=== PATIENT | female | born 1935 | race Caucasian/White ===

== ENCOUNTER → 2016-05-11 | Outpatient (REF) | payer MEDICARE, OTHER ==
[~2016-05-11] MED LIST: /ESOM40CA OR; ALIEVE PO; AVAP300T OR; COLA100C2 OR; Centrum Silver PO; Citracal PO; Fish Oil PO; Levothyroxin PO; Magnesium PO; Metamucil PO; Metoprolol PO; Red Yeast Rice PO; VICO5TAB OR; Vit D3 PO; Vitamin B12 PO
[2016-05-11 12:24] LABS: ALBUMIN 3.8 GM/DL (3.2-5.2); ALBUMIN/GLOBULIN RATIO 1.15 (1.00-1.93); ALKALINE PHOSPHATASE 97 U/L (45-117); ALT/SGPT 19 U/L (12-78); ANION GAP 8 MEQ/L (8-16); AST/SGOT 16 U/L (15-37); BILIRUBIN,TOTAL 0.5 MG/DL (0.2-1.0); BLOOD UREA NITROGEN 16 MG/DL (7-18); CALCIUM LEVEL 8.7 MG/DL (8.8-10.2); CARBON DIOXIDE LEVEL 28 MEQ/L (21-32); CHLORIDE LEVEL 100 MEQ/L (98-107); CHOLESTEROL LEVEL 186 MG/DL (<200); CREATININE FOR GFR 0.75 MG/DL (0.55-1.02); GLOMERULAR FILTRATION RATE > 60.0 (>39); GLUCOSE, FASTING 83 MG/DL (83-110); POTASSIUM SERUM 4.5 MEQ/L (3.5-5.1); SODIUM LEVEL 136 MEQ/L (136-145); TOTAL PROTEIN 7.1 GM/DL (6.4-8.2); TRIGLYCERIDES LEVEL 87 MG/DL (<150)
== END ==
LOC: M SFHCPLAZ 08:39
PROVIDERS: ATTEND Internal Medicine
DX: I10 Essential (primary) hypertension (principal); E78.00 Pure hypercholesterolemia, unspecified; E03.9 Hypothyroidism, unspecified

== ENCOUNTER → 2016-06-01 | Day surgery (SDC) | payer MEDICARE, OTHER ==
[~2016-06-01] VITALS: Ht 162.6 cm; Wt 81.6 kg
[~2016-06-01] MED LIST changes: +ACETAMINOPHEN 325 MG TAB PO PRN; +AVAL300T14 PO; +AcetaZOLAMIDE 500 MG ER CAP PO ONE; +BSS with VANC/TOB/EPI for EYE CASES IR ONE; +CELE-19 PO; +CITRTAB18 PO; +CYCLOPENTOLATE 2% OPHTH SOLN OD ONE; +FISH1000 PO; +HEALON DUET (HEALON 10MG/ML 0.55ML & HEALON ENDOCOAT 30MG/ML 0.85ML) As Ordered ONE; +HEALON DUET (HEALON 10MG/ML 0.55ML & HEALON ENDOCOAT 30MG/ML 0.85ML) XX ONE; +KETOROLAC 0.5% OPHTH SOLN OD ONE; +LEVO88TA3 PO; +LIDOCAINE 1% SDV 5 ML VIAL As Ordered ONE; +LIDOCAINE 4% INJ 5 ML AMP OU ONE; +LR 1,000 ML IV SCH; +MAGN250T5 PO; +MIDAZOLAM INJ 2 MG/2 ML VIAL (J2250) As Ordered ONE; +MOXIFLOXACIN IN BSS 0.25MG/0.25ML INTRACAMERAL INJ (OR EYE ONLY)(J2280) As Ordered ONE; +MOXIFLOXACIN IN BSS 0.25MG/0.25ML INTRACAMERAL INJ (OR EYE ONLY)(J2280) ICAM ONE; +OFLOXACIN 0.3 % (OCUFLOX) OPTH SOL 5ML OD ONE; +PHENYLEPHRINE 2.5% OPHTH SOL 2ML OD ONE; +POVIDONE-IODINE 5% OPHTH PREP SOL 30ML As Ordered ONE; +PRIL20CA9 PO; +PROPARACAINE 0.5% OPHTH SOL 15ML OD PRN; +REDCAP3 PO; +TRIAMCINOLONE PRES FR 40 MG/ML 1ML(TRIESENCE)(OR EYE ONLY)(J3300 PER 1MG) As Ordered ONE; +TRIAMCINOLONE PRES FR 40 MG/ML 1ML(TRIESENCE)(OR EYE ONLY)(J3300 PER 1MG) IO ONE; +TRIMETHOBENZAMIDE 300 MG CAP PO PRN; +TROPICAMIDE 1% OPHTH SOLN 2 ML OD ONE; +VITA-193 PO; +VITA100037 PO; +fentaNYL 100 MCG/2 ML INJECTION (J3010) As Ordered ONE
[2016-06-01] MEDS: D5W/0.2% SODIUM CHLORIDE 250 ML IV SCH ×2 (07:40→08:02)
[2016-06-01 09:30] VITALS: BP 149/70
== END | disposition home or self-care (01) ==
LOC: M SDC 06:58
PROVIDERS: ATTEND Ophthalmology
DX: H26.9 Unspecified cataract (principal); I10 Essential (primary) hypertension; E03.9 Hypothyroidism, unspecified; K21.9 Gastro-esophageal reflux disease without esophagitis; Z79.899 Other long term (current) drug therapy; Z88.0 Allergy status to penicillin
CPT/HCPCS: 66984; 67515; J2250; J2280; J3010; J3300; V2632

== ENCOUNTER → 2018-10-30 | Outpatient (CLI) | payer MEDICARE, OTHER ==
[~2018-10-30] MED LIST changes: -/ESOM40CA OR; -ACETAMINOPHEN 325 MG TAB PO PRN; -AcetaZOLAMIDE 500 MG ER CAP PO ONE; +BIOT1CAP2 PO; -BSS with VANC/TOB/EPI for EYE CASES IR ONE; +CALTAB PO; -CELE-19 PO; +CELE1CAP4 PO; +CETI10CH PO; -CYCLOPENTOLATE 2% OPHTH SOLN OD ONE; +D3 A1000 PO; +FISH306C PO; -HEALON DUET (HEALON 10MG/ML 0.55ML & HEALON ENDOCOAT 30MG/ML 0.85ML) As Ordered ONE; -HEALON DUET (HEALON 10MG/ML 0.55ML & HEALON ENDOCOAT 30MG/ML 0.85ML) XX ONE; +IRBE300T12 PO; -KETOROLAC 0.5% OPHTH SOLN OD ONE; -LIDOCAINE 1% SDV 5 ML VIAL As Ordered ONE; -LIDOCAINE 4% INJ 5 ML AMP OU ONE; -LR 1,000 ML IV SCH; -MAGN250T5 PO; +MAGN250T6 PO; -MIDAZOLAM INJ 2 MG/2 ML VIAL (J2250) As Ordered ONE; -MOXIFLOXACIN IN BSS 0.25MG/0.25ML INTRACAMERAL INJ (OR EYE ONLY)(J2280) As Ordered ONE; -MOXIFLOXACIN IN BSS 0.25MG/0.25ML INTRACAMERAL INJ (OR EYE ONLY)(J2280) ICAM ONE; +MYRB25TA PO; +NEXI1CAP3 OR; -OFLOXACIN 0.3 % (OCUFLOX) OPTH SOL 5ML OD ONE; +OMEP20CA4 PO; -PHENYLEPHRINE 2.5% OPHTH SOL 2ML OD ONE; -POVIDONE-IODINE 5% OPHTH PREP SOL 30ML As Ordered ONE; -PROPARACAINE 0.5% OPHTH SOL 15ML OD PRN; -TRIAMCINOLONE PRES FR 40 MG/ML 1ML(TRIESENCE)(OR EYE ONLY)(J3300 PER 1MG) As Ordered ONE; -TRIAMCINOLONE PRES FR 40 MG/ML 1ML(TRIESENCE)(OR EYE ONLY)(J3300 PER 1MG) IO ONE; -TRIMETHOBENZAMIDE 300 MG CAP PO PRN; -TROPICAMIDE 1% OPHTH SOLN 2 ML OD ONE; -VITA100037 PO; +VITA100067 PO; +VITA50TA43 PO; -fentaNYL 100 MCG/2 ML INJECTION (J3010) As Ordered ONE
--- NOTE | 2018-10-30 08:57 | ECGEPIP ---
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
--- NOTE | 2018-10-30 09:15 | REP ---
Clinical: Preoperative assessment. Left knee arthroplasty . Comparison: 12/01/2007 . Technique: PA and lateral. Findings: The mediastinum and cardiac silhouette are normal. The lung calvert are clear and without acute consolidation, effusion, or pneumothorax. The skeletal structures are intact and normal. Impression: 1. No acute cardiopulmonary process. Electronically Signed by Baudilio Chandler MD 10/30/2018 09:06 A
[2018-10-30 09:29] LABS: HEMATOCRIT 39.5 % (36.0-47.0); HEMOGLOBIN 13.3 g/dl (12.0-15.5); MEAN CORPUSCULAR HEMOGLOBIN 30.4 pg (27.0-33.0); MEAN CORPUSCULAR HGB CONC 33.7 g/dl (32.0-36.5); MEAN CORPUSCULAR VOLUME 90.2 fl (80.0-96.0); PLATELET COUNT, AUTOMATED 282 10^3/uL (150-450); RED BLOOD COUNT 4.38 10^6/uL (4.00-5.40); WHITE BLOOD COUNT 4.7 10^3/uL (4.0-10.0)
[2018-10-30 09:40] LABS: INR 1.02; PROTHROMBIN TIME 13.1 SECONDS (11.8-14.0)
[2018-10-30 09:53] LABS: ALBUMIN 3.7 GM/DL (3.2-5.2); ALT/SGPT 20 U/L (12-78); BILIRUBIN,TOTAL 0.5 MG/DL (0.2-1.0); BLOOD UREA NITROGEN 14 MG/DL (7-18); CALCIUM LEVEL 8.9 MG/DL (8.8-10.2); CARBON DIOXIDE LEVEL 29 MEQ/L (21-32); CHLORIDE LEVEL 96 MEQ/L (98-107); CREATININE FOR GFR 0.75 MG/DL (0.55-1.30); GLOMERULAR FILTRATION RATE > 60.0 (>32); GLUCOSE, FASTING 90 MG/DL (70-100); POTASSIUM SERUM 4.5 MEQ/L (3.5-5.1); SODIUM LEVEL 131 MEQ/L (136-145); TOTAL PROTEIN 7.5 GM/DL (6.4-8.2)
[2018-10-30 10:18] LABS: ERYTHROCYTE SEDIMENTATION RATE 17 mm/hr (0-30)
== END ==
LOC: M LAB 08:08
PROVIDERS: ATTEND Orthopaedic Surgery
DX: Z01.818 Encounter for other preprocedural examination (principal); K21.9 Gastro-esophageal reflux disease without esophagitis; M17.12 Unilateral primary osteoarthritis, left knee

== ENCOUNTER 2018-11-16 08:44 | Inpatient (IN) | payer MEDICARE, OTHER ==
[2018-11-16] VITALS (8 sets, daily range): BP systolic 122–186; BP diastolic 88–107; O2SAT 96
[~2018-11-16] VITALS: Ht 162.6 cm; Wt 80.7 kg
[~2018-11-16 08:44] MED LIST changes: +ACETAMINOPHEN 500 MG TAB PO ONE; +CYAN500T9 PO; +LR 1,000 ML IV ONE; -VITA-193 PO; +ceFAZolin SOD 2 GM in IV 1 EA IV ONE
[2018-11-16] MEDS ORDERED: PROPOFOL 200 MG/20 ML VIAL As Ordered ONE (09:18)
[2018-11-16] MEDS ORDERED: ONDANSETRON 4MG/2ML VIAL (J2405) As Ordered ONE (09:21)
[2018-11-16] MEDS ORDERED: dexameTHASONE 4 MG/ML 1ML VIAL (J1100) As Ordered ONE ×2 (09:21→09:22)
[2018-11-16] MEDS ORDERED: LIDOCAINE 2% INJ 100 MG/5 ML SDV (FOR ANES.) As Ordered ONE (09:21)
[2018-11-16] MEDS ORDERED: MIDAZOLAM INJ 2 MG/2 ML VIAL (J2250) As Ordered ONE ×2 (09:24→09:52)
[2018-11-16] MEDS ORDERED: fentaNYL 100 MCG/2 ML INJECTION (J3010) As Ordered ONE ×2 (09:24→09:52)
[2018-11-16] MEDS ORDERED: TRANEXAMIC ACID 100 MG/ML 10ML VIAL As Ordered ONE (10:27)
[2018-11-16] MEDS ORDERED: CLINDAMYCIN INJ 900MG/6ML VIAL As Ordered ONE (10:28)
[2018-11-16] MEDS ORDERED: EPINEPHrine INJ 1 MG/ML 1ML AMP As Ordered ONE (10:28)
[2018-11-16] MEDS ORDERED: BUPIVACAINE LIPOSOME/PF 1.3% 20ML VIAL (13.3MG/ML)(EXPAREL)(C9290 PER1MG) As Ordered ONE (10:28)
[2018-11-16] MEDS ORDERED: BUPIVACAINE HCL 0.25% 10 ML VIAL As Ordered ONE (10:28)
[2018-11-16] MEDS ORDERED: LIDOCAINE 1% MDV 20ML VIAL ONE (11:00)
[2018-11-16] MEDS ORDERED: MIDAZOLAM INJ 2 MG/2 ML VIAL (J2250) IV PRN (11:00)
[2018-11-16] MEDS ORDERED: ROPIvacaine 0.5% 30 ML INJECTION (J2795 PER 1MG) ONE (11:00)
[2018-11-16] MEDS ORDERED: fentaNYL 100 MCG/2 ML INJECTION (J3010) IV PRN ×2 (11:00→13:00)
[2018-11-16] MEDS ORDERED: ePHEDrine SULFATE 25 MG/5 ML(5MG/ML) SYRINGE As Ordered ONE (11:49)
[2018-11-16] MEDS ORDERED: PHENYLephrine HCL 500 MCG/5 ML (100MCG/ML) SYRINGE (J2370) As Ordered ONE (11:49)
[2018-11-16] MEDS ORDERED: PERCOCET 5MG/325MG TAB PO PRN (13:00)
[2018-11-16] MEDS ORDERED: MEPERIDINE INJ 25 MG/ML VIAL (J2175) IV PRN (13:00)
[2018-11-16] MEDS ORDERED: METOCLOPRAMIDE INJ 10MG/2ML VIAL (J2765) IV PRN (13:00)
[2018-11-16] MEDS ORDERED: LR 1,000 ML IV SCH ×2 (13:00→14:15)
[2018-11-16] MEDS ORDERED: ONDANSETRON 4MG/2ML VIAL (J2405) IV PRN (13:00)
[2018-11-16] MEDS ORDERED: HYDROMORPHONE HCL 0.5 MG/ 0.5 ML SYRINGE (J1170 PER 1) IV PRN (13:15)
[2018-11-16] MEDS ORDERED: FLEET ENEMA PR PRN (13:15)
[2018-11-16] MEDS ORDERED: ACETAMINOPHEN TAB 650MG DOSE (2X325MG) PO PRN (13:15)
--- NOTE | 2018-11-16 15:07 | REP ---
REASON: Postop TKR. AP and lateral views were obtained portably status post total knee replacement. The femoral and tibial components of the prosthesis are well seated and well approximated. The alignment is near anatomical. There is expected postoperative soft tissue swelling. There is an anterior midline skin staple line in place. Electronically Signed by Yury Saucedo DO 11/16/2018 03:20 P
[2018-11-16] MEDS ORDERED: OMEPRAZOLE 20 MG CAP PO PRN (17:00)
--- NOTE | 2018-11-16 17:06 | CR.PDOC ---
General Date of Consultation: Nov 16, 2018 Referring Provider: Valerie Jaimes Primary Care Physician: Javed Sánchez Consultation REASON FOR CONSULTATION/CHIEF COMPLAINT: Medical management after left knee arthoplasty HISTORY OF PRESENT ILLNESS: 83 yo female with history of HTN, OA underwent left knee arthoplasty. She states no concerns at this time and pain postoperatively is controlled. ALLERGIES: Please see below. HOME MEDICATIONS: Please see below. PAST MEDICAL HISTORY: HTN,Hypothyroid, OA PAST SURGICAL HISTORY: LI (1 ovary left), tubal , deviated septum repair,rectocele repair,bladder suspension, left elbow surgery, T&A, Right breast lumpectomy (benign), spagellian Hernia repair, appendectomy; FAMILY HISTORY: Father age 84 bladder cancer; mother age 95 - old age SOCIAL HISTORY: 64 years ( at bedside), no tobacco, no EtOH use REVIEW OF SYSTEMS: 10 systems reviewed and negative except for constipation; last bowel movement yesterday. PHYSICAL EXAMINATION: VITAL SIGNS: Please see below. General: pleasant NAD AAOx3 HEENT: QUEENIE/EOMI, oral mucosa moist HRRR no murmur LCTA no W/R/R abdomen: soft NT ND NABS Ext: no ankle edema; left knee bandage intact Neuro: CN 3-12 intact , no gross motor or sensory deficit (left lower extremity not tested) LABORATORY DATA: Please see below. ASSESSMENT/PLAN: OA with left knee arthoplasty - management per ortho HTN - continue with ARB (hold HCTZ) and monitor BP Hypothyroid - continue with levothyroxine DVT prophylaxis: Xarelto tomorrow per ortho Vital Signs/I&O Vital Signs Date Time Temp Pulse Resp B/P (MAP) Pulse Ox O2 Delivery O2 Flow Rate FiO2 11/16/18 13:22 97.1 76 18 166/76 (106) 96 11/16/18 10:30 3 Laboratory Data Labs 24H Item Value Date Time White Blood Count 4.7 10^3/uL 10/30/18 0826 Hemoglobin 13.3 g/dl 10/30/18 0826 Hematocrit 39.5 % 10/30/18 0826 Platelet Count 282 10^3/uL 10/30/18 0826 Sodium Level 131 MEQ/L L 10/30/18 0826 Potassium Level 4.5 MEQ/L 10/30/18 0826 Chloride Level 96 MEQ/L L 10/30/18825 Carbon Dioxide Level 29 MEQ/L 10/30/18 0826 Creatinine 0.75 MG/DL 10/30/1826 Blood Urea Nitrogen 14 MG/DL 10/30/18 08 Calcium Level 8.9 MG/DL 10/30/18 08 Fasting Glucose 90 MG/DL 10/30/18 0826 Albumin 3.7 GM/DL 10/30/18 08 Prothromb Time International Ratio 1.02 10/30/18 08 Allergies Coded Allergies: Penicillins (Verified Allergy, Intermediate, systemic rash, 11/02/18) TAPE (Verified Allergy, Unknown, 11/02/18) bandaid adhesives Home Medications Scheduled Biotin (Biotin) 1 Mg Capsule, 1 MG PO DAILY, (Reported) Calcium Carb/D3/Magnesium/Zinc (Patel Mag Zinc-D Tablet) 1 Each Tablet, 1 TAB PO DAILY, (Reported) Celecoxib (Celebrex) 200 Mg Cap, 200 MG PO BID, (Reported) Cetirizine HCl (Cetirizine HCl) 10 Mg Tab.chew, 10 MG PO DAILY, (Reported) Cholecalciferol (Vitamin D3) (Vitamin D3) 1,000 Unit Tab.chew, 1,000 UNIT PO DAILY, (Reported) Irbesartan/Hydrochlorothiazide (Irbesartan-Hctz 300-12.5 mg Tb) 1 Each Tablet, 1 TAB PO DAILY, (Reported) Levothyroxine Sodium (Levothyroxine Sodium) 88 Mcg Tab, 88 MCG PO DAILY, (Reported) Mirabegron (Myrbetriq) 25 Mg Tab.er.24h, 25 MG PO DAILY, (Reported) [facility]-3/Dha/Epa/Fish Oil (Fish Oil 500 mg Softgel) 1 Each Capsule, 1 CAP PO DAILY, (Reported) Pyridoxine HCl (Vitamin B6) (Vitamin B-6) 50 Mg Tablet, 100 MG PO DAILY, (Reported) Red Yeast Rice (Red Yeast Rice) 600 Mg Cap, 600 MG PO DAILY, (Reported) Scheduled PRN Omeprazole (Omeprazole) 20 Mg Capsule.dr, 20 MG PO DAILYPRN PRN for HEARTBURN, (Reported) ADRIAN AWAD DO Nov 16, 2018 14:08
[2018-11-16] MEDS ORDERED: NITROGLYCERIN 2% OINT 1 GM *U/D* PKT TOP PRN (17:15)
[2018-11-16] MEDS: ceFAZolin SOD 2 GM in IV 1 EA IV SCH ×2 (18:21→23:58)
[2018-11-16] MEDS: HYDROMORPHONE HCL 0.5 MG/ 0.5 ML SYRINGE (J1170 PER 1) IV PRN (18:23)
[2018-11-16] MEDS: SENOKOT S TAB PO SCH (22:51)
[2018-11-16] MEDS: ACETAMINOPHEN 500 MG TAB PO PRN (22:56)
[2018-11-17 02:00] VITALS: BP_SYST 168; BP_SYST 170; BP_DIAS 90; BP_DIAS 92
[2018-11-17] MEDS: HYDROMORPHONE HCL 0.5 MG/ 0.5 ML SYRINGE (J1170 PER 1) IV PRN (02:53)
[2018-11-17 06:00] VITALS: BP 162/89
[2018-11-17] MEDS ORDERED: LEVOTHYROXINE 88MCG TABLET (0.088 MG) PO SCH (06:00)
[2018-11-17] MEDS: ceFAZolin SOD 2 GM in IV 1 EA IV SCH (06:01)
[2018-11-17 06:50] LABS: HEMATOCRIT 34.9 % (36.0-47.0); HEMOGLOBIN 11.9 g/dl (12.0-15.5); MEAN CORPUSCULAR HEMOGLOBIN 30.6 pg (27.0-33.0); MEAN CORPUSCULAR HGB CONC 34.1 g/dl (32.0-36.5); MEAN CORPUSCULAR VOLUME 89.7 fl (80.0-96.0); PLATELET COUNT, AUTOMATED 255 10^3/uL (150-450); RED BLOOD COUNT 3.89 10^6/uL (4.00-5.40); WHITE BLOOD COUNT 10.4 10^3/uL (4.0-10.0)
[2018-11-17] MEDS ORDERED: traMADol 50 MG TAB PO PRN ×2 (07:00)
[2018-11-17 07:02] LABS: INR 1.13; PROTHROMBIN TIME 14.2 SECONDS (11.8-14.0)
[2018-11-17] MEDS ORDERED: XARE10TA PO (07:08)
[2018-11-17] MEDS ORDERED: TRAM50TA2 PO (07:08)
[2018-11-17 07:14] LABS: BLOOD UREA NITROGEN 11 MG/DL (7-18); CALCIUM LEVEL 8.6 MG/DL (8.8-10.2); CARBON DIOXIDE LEVEL 25 MEQ/L (21-32); CHLORIDE LEVEL 98 MEQ/L (98-107); CREATININE FOR GFR 0.64 MG/DL (0.55-1.30); GLOMERULAR FILTRATION RATE > 60.0 (>32); GLUCOSE, FASTING 129 MG/DL (70-100); POTASSIUM SERUM 3.9 MEQ/L (3.5-5.1); SODIUM LEVEL 129 MEQ/L (136-145)
[2018-11-17] MEDS: ACETAMINOPHEN 500 MG TAB PO PRN (07:24)
[2018-11-17] MEDS ORDERED: SENN1TAB41 PO (07:54)
[2018-11-17] MEDS: SENOKOT S TAB PO SCH (08:22)
[2018-11-17 08:24] VITALS: BP 162/89
[2018-11-17] MEDS ORDERED: VITAMIN D 1,000 INTERNATIONAL UNITS TABLET PO SCH (09:00)
[2018-11-17] MEDS ORDERED: IRBESARTAN 150 MG TAB PO SCH (09:00)
[2018-11-17] MEDS ORDERED: CETIRIZINE (ZyrTEC) 5 MG/5 ML UDC DYE FREE PO SCH (09:00)
[2018-11-17] MEDS ORDERED: MIRALAX *UNIT DOSE* 17GM PACKET PO SCH (09:00)
[2018-11-17] MEDS ORDERED: PYRIDOXINE 50 MG TAB PO SCH (09:00)
[2018-11-17] MEDS ORDERED: MOM 30ML SUSPENSION UDC PO SCH (09:00)
[2018-11-17 10:24] VITALS: BP 157/90
[2018-11-17] MEDS ORDERED: OXYC-517 PO (11:00)
[2018-11-17] MEDS ORDERED: PREVNAR 13 VACCINE SYRINGE (CPT CODE:90670) IM ONE (14:00)
[2018-11-17] MEDS ORDERED: RIVAROXABAN 10 MG TAB (XARELTO) PO SCH (18:00)
--- NOTE | 2018-11-20 15:33 | RO ---
DATE OF PROCEDURE: 11/16/2018 PREPROCEDURE DIAGNOSIS: Left knee degenerative arthritis. POSTPROCEDURE DIAGNOSIS: Left knee degenerative arthritis. PROCEDURE: Left total knee arthroplasty using a size 5 Attune cruciate retaining femoral component, cemented, with a size 4 tibial tray and a 6 mm rotating platform polyethylene insert and a 32 mm polyethylene button. All components were cemented. The prosthesis was made by [employer]. SURGEON: Valerie Jaimes MD FOREIGN SERVICE TEACHER: Mr. Spain Overholt ANESTHESIA: Spinal with left femoral nerve block. COMPLICATIONS: None. ESTIMATED BLOOD LOSS: 20 mL. SPECIMENS: Joint surface. DESCRIPTION OF PROCEDURE: Antibiotics were given intravenously preoperatively, and a successful left femoral nerve block and then a spinal anesthetic was induced. The tourniquet was placed on the left upper thigh and not inflated. The left lower extremity was carefully prepped and draped in the usual sterile fashion, leg elevated, and after appropriate time-out, the tourniquet was inflated. A longitudinal incision was made for a medial parapatellar approach to the knee. Bovie cautery used to coagulate crossing vessels down to the fascia, which was then divided in line with the skin incisions along the medial parapatellar area. Subperiosteal dissection around the proximal medial portion of the tibia plateau was performed, as well as the proximal tibial plateau. The patella was everted and the knee flexed, drill placed down the center of the femoral canal, followed by the intramedullary magdaleno and the distal femoral cutting jig set at 9 mm resection level, 5-degree valgus cut for a left knee. The jig was pinned into position, and then the distal femoral cut performed. AP sizing jig measured for a size 5 femoral component, 3 degrees of external rotation dialed in. The drill was placed. The 4-in-1 block applied and the anterior and posterior chamfer cuts performed. The jig for the notchplasty was then applied and then the notchplasty performed. Then we exposed the proximal tibia, used the extramedullary magdaleno to estimate being parallel to the mechanical axis, referencing off the medial tibial condyle at 4 mm resection level. The block was set, pinned in position. Extramedullary magdaleno was confirmed. We appeared to be parallel to the mechanical axis. The proximal tibial osteotomy thus performed. The lamina alcohol still operator placed laterally, and we performed a completion of medial meniscectomy and debridement of the posterior and medial osteophytes, and then placed the lamina alcohol still operator medially, and performed a completion lateral meniscectomy with debridement of the posterior and lateral osteophytes. A spacer block at 6 mm had good symmetry, both in flexion and in extension. This was felt to be the appropriate size. Thus, we exposed the proximal tibia and sized for a #4 tibial tray, which was pinned, reamed and broached followed by the trial component. The trial femoral component was applied. The knee was brought into extension and the patella everted, patellar osteotomy performed, and then sized for a 32 button. The trial was placed. Patellofemoral tracking was anatomic. We drilled the holes for the femur, and then we removed all the trial components, and then placed Exparel in the subperiosteal tissues around the distal femur at the proximal tibia; and then my magistrate assistant, Mr. Grabiel Chacon mixed the cement on the back table, as I prepared the bony surfaces for cementing with a copious amount of pulsatile lavage irrigant solution. Mr. Chacon was also critical to the success of this difficult operation by helping with appropriate soft tissue retraction, helped to manipulate the knee in flexion and extension, helped to mix the cement, closed the wound, prepared the patient, amongst many other tasks to allow me to perform the operation smoothly and efficiently and safely. We then cemented the tibial tray, removed excess cement, placed the polyethylene, then cemented the femoral component, removed excess cement, brought the knee into extension, and then everted the patella, and cemented the patellar button, removed excess cement, and held it with a clamp with the knee in full extension until the cement hardened. As we were awaiting this, we copiously irrigated out the knee once again, and then placed tranexamic acid in the knee, then began closing the apex of the arthrotomy with two #1 polydioxanone suture (PDS) sutures in the knee. The medial parapatellar area was closed with a #1 PDS suture and then we closed the capsule with a running double-armed #1 Stratafix. The tourniquet was then released. We irrigated between layers and closed the deep subdermal tissues with interrupted #2-0 PDS sutures. The skin was closed with coni, covered by an Optifoam dry sterile bulky dressing. He was then transferred to the recovery room in stable condition. There were no intraoperative complications.
--- NOTE | 2018-11-21 18:24 | DSES ---
DATE OF ADMISSION: 11/16/2018 DATE OF DISCHARGE: 11/17/2018 ATTENDING PHYSICIAN: Dr. Mark Jaimes ADMISSION DIAGNOSIS: Osteoarthritis, left knee. OTHER DIAGNOSES: 1. Hypertension. 2. Gastroesophageal reflux disease (GERD). 3. Hypercholesterolemia. 4. Hypothyroidism. 5. Lactose intolerance. 6. Allergic rhinitis. 7. Migraines. 8. Osteoarthritis. 9. History of colon polyps. DISCHARGE DIAGNOSIS: Osteoarthritis, left knee status post left total knee arthroplasty. OPERATION PERFORMED: Left total knee arthroplasty. HISTORY: This is an 83-year-old female patient with progressively worsening left knee pain and stiffness who failed to improve with conservative management. She was admitted for elective knee replacement on the left side. HOSPITAL COURSE: The patient was admitted on the day of surgery and underwent a left total knee arthroplasty which was uneventful. She did well in the postoperative period and her hospital course was without complications. She was up with physical therapy per their protocol and pain was controlled on the day of discharge. She was doing well, weightbearing as tolerated on the left lower extremity. She will follow postoperative deep vein thrombosis (DVT) prophylaxis per protocol. She will resume her preoperative medications and diet along with oral pain medications for pain control. She was given instructions to include but not limited to wound monitoring and activity limitations. She will followup in our office in 10-14 days for surgical followup. Please refer to the medical record for further details.
== END 2018-11-17 14:25 | disposition home health service (06) | DRG 470 ==
LOC: M OR 08:44 → M MS5PR 13:35
PROVIDERS: ADMIT Orthopaedic Surgery; ATTEND Orthopaedic Surgery
PROC: 0SRD0J9 Replacement of Left Knee Joint with Synthetic Substitute, Cemented, Open Approach (ICD-10-PCS; principal; 2018-11-16 10:30)
DX: M17.12 Unilateral primary osteoarthritis, left knee (principal); E03.9 Hypothyroidism, unspecified; I10 Essential (primary) hypertension; K21.9 Gastro-esophageal reflux disease without esophagitis; G43.909 Migraine, unspecified, not intractable, without status migrainosus; E78.00 Pure hypercholesterolemia, unspecified; E73.9 Lactose intolerance, unspecified; J30.9 Allergic rhinitis, unspecified; Z88.0 Allergy status to penicillin; Z91.048 Other nonmedicinal substance allergy status; Z86.010 Personal history of colon polyps; Z79.899 Other long term (current) drug therapy; Z98.41 Cataract extraction status, right eye; Z98.42 Cataract extraction status, left eye; Z90.710 Acquired absence of both cervix and uterus

== ENCOUNTER → 2019-05-24 | Outpatient (REF) | payer MEDICARE, OTHER ==
[~2019-05-24] MED LIST changes: -ACETAMINOPHEN 500 MG TAB PO ONE; -LR 1,000 ML IV ONE; +OMEP1CAP73 PO; -OMEP20CA4 PO; +OXYC-517 PO; +SENN1TAB41 PO; +TRAM50TA2 PO; +XARE10TA PO; -ceFAZolin SOD 2 GM in IV 1 EA IV ONE
== END ==
LOC: M SFHCPLAZ 16:09
PROVIDERS: ATTEND Internal Medicine
DX: Z01.818 Encounter for other preprocedural examination (principal); Z53.8 Procedure and treatment not carried out for other reasons

== ENCOUNTER → 2019-05-27 | Outpatient (CLI) | payer MEDICARE, OTHER ==
[2019-05-27 10:25] LABS: BLOOD UREA NITROGEN 16 MG/DL (7-18); CALCIUM LEVEL 8.7 MG/DL (8.8-10.2); CARBON DIOXIDE LEVEL 28 MEQ/L (21-32); CHLORIDE LEVEL 99 MEQ/L (98-107); CREATININE FOR GFR 0.75 MG/DL (0.55-1.30); GLOMERULAR FILTRATION RATE > 60.0 (>32); GLUCOSE, FASTING 96 MG/DL (70-100); POTASSIUM SERUM 4.8 MEQ/L (3.5-5.1); SODIUM LEVEL 133 MEQ/L (136-145)
== END ==
LOC: M PLALAB 08:13
PROVIDERS: ATTEND Internal Medicine
DX: Z01.818 Encounter for other preprocedural examination (principal)

== ENCOUNTER → 2021-03-02 | Outpatient (CLI) | payer MEDICARE, OTHER ==
[~2021-03-02] MED LIST changes: -CYAN500T9 PO; +VITA500T37 PO
[2021-03-02 10:38] LABS: BASO % 0.8 % (0.0-1.0); EOS # 0.2 10^3/uL (0.0-0.5); EOS % 4.3 % (0.0-3.0); HEMATOCRIT 37.8 % (36.0-47.0); HEMOGLOBIN 12.5 g/dl (12.0-15.5); LYMPH % 21.1 % (24.0-44.0); MEAN CORPUSCULAR HEMOGLOBIN 29.6 pg (27.0-33.0); MEAN CORPUSCULAR HGB CONC 33.1 g/dl (32.0-36.5); MEAN CORPUSCULAR VOLUME 89.4 fl (80.0-96.0); MONO # 0.5 10^3/uL (0.0-0.8); MONO % 9.9 % (2.0-8.0); NEUTROPHILS # 3.1 10^3/uL (1.5-8.5); NEUTROPHILS % 63.5 % (36.0-66.0); PLATELET COUNT, AUTOMATED 302 10^3/uL (150-450); RED BLOOD COUNT 4.23 10^6/uL (4.00-5.40); WHITE BLOOD COUNT 4.9 10^3/uL (4.0-10.0)
[2021-03-02 11:20] LABS: ALBUMIN 3.6 GM/DL (3.2-5.2); ALT/SGPT 23 U/L (12-78); BILIRUBIN,TOTAL 0.6 MG/DL (0.2-1.0); BLOOD UREA NITROGEN 15 MG/DL (7-18); CARBON DIOXIDE LEVEL 28 MEQ/L (21-32); CHLORIDE LEVEL 98 MEQ/L (98-107); CHOLESTEROL LEVEL 158 MG/DL (<200); CHOLESTEROL RISK RATIO 3.098 (<5); CREATININE FOR GFR 0.78 MG/DL (0.55-1.30); GLOMERULAR FILTRATION RATE > 60.0 (>32); GLUCOSE, FASTING 93 MG/DL (70-100); HDL CHOLESTEROL 51 MG/DL (>40); LDL CHOLESTEROL 93 MG/DL (<100); MAGNESIUM LEVEL 1.7 MG/DL (1.8-2.4); NON-HDL-C 107 MG/DL; POTASSIUM SERUM 4.5 MEQ/L (3.5-5.1); SODIUM LEVEL 132 MEQ/L (136-145); THYROID STIMULATING HORMONE 0.717 uIU/ML (0.358-3.740); TOTAL PROTEIN 7.6 GM/DL (6.4-8.2); TRIGLYCERIDES LEVEL 72 MG/DL (<150)
== END ==
LOC: M PLALAB 08:25
PROVIDERS: ATTEND Internal Medicine
DX: E03.9 Hypothyroidism, unspecified (principal); E78.00 Pure hypercholesterolemia, unspecified; I10 Essential (primary) hypertension; K21.9 Gastro-esophageal reflux disease without esophagitis

== ENCOUNTER → 2021-04-30 | Outpatient (CLI) | payer MEDICARE, OTHER ==
[~2021-04-30] MED LIST changes: +ISOVUE-300 61% 50ML VIAL As Ordered ONE; +LIDOCAINE 1% MDV 20ML VIAL As Ordered ONE; +methylPREDNISolone SUSP 40MG/ML 1ML VIAL (DEPO MEDROL) As Ordered ONE
== END ==
LOC: M RADPRO 12:28
PROVIDERS: ATTEND Physician Assistant Surgical
DX: M19.122 Post-traumatic osteoarthritis, left elbow (principal); M25.422 Effusion, left elbow
CPT/HCPCS: 20605; 77002; J1030; Q9967

== ENCOUNTER → 2021-05-06 | Outpatient (CLI) | payer MEDICARE, OTHER ==
[~2021-05-06] MED LIST changes: -ISOVUE-300 61% 50ML VIAL As Ordered ONE; -LIDOCAINE 1% MDV 20ML VIAL As Ordered ONE; -methylPREDNISolone SUSP 40MG/ML 1ML VIAL (DEPO MEDROL) As Ordered ONE
[2021-05-06 10:28] LABS: PLATELET COUNT, AUTOMATED 303 10^3/uL (150-450)
[2021-05-06 10:38] LABS: INR 1.04
[2021-05-06 10:39] LABS: PARTIAL THROMBOPLASTIN TIME 32.1 SECONDS (25.9-37.0)
== END ==
LOC: M PLALAB 09:10
PROVIDERS: ATTEND Physician Assistant Surgical
DX: M43.17 Spondylolisthesis, lumbosacral region (principal); Z79.899 Other long term (current) drug therapy

== ENCOUNTER → 2021-11-16 | Outpatient (CLI) | payer MEDICARE, OTHER ==
[2021-11-16 17:16] LABS: BASO # 0.1 10^3/uL (0.0-0.2); BASO % 0.8 % (0.0-1.0); EOS # 0.1 10^3/uL (0.0-0.5); EOS % 0.8 % (0.0-3.0); HEMATOCRIT 38.6 % (36.0-47.0); HEMOGLOBIN 12.6 g/dl (12.0-15.5); LYMPH % 15.4 % (24.0-44.0); MEAN CORPUSCULAR HEMOGLOBIN 30.4 pg (27.0-33.0); MEAN CORPUSCULAR HGB CONC 32.6 g/dl (32.0-36.5); MONO # 0.7 10^3/uL (0.0-0.8); MONO % 10.6 % (2.0-8.0); NEUTROPHILS # 4.6 10^3/uL (1.5-8.5); NEUTROPHILS % 72.1 % (36.0-66.0); PLATELET COUNT, AUTOMATED 301 10^3/uL (150-450); RED BLOOD COUNT 4.15 10^6/uL (4.00-5.40); WHITE BLOOD COUNT 6.4 10^3/uL (4.0-10.0)
[2021-11-16 17:43] LABS: CK-MB VALUE MASS 2.6 NG/ML (<3.6); MB/CK RELATIVE INDEX 3.33 (< OR =4)
[2021-11-16 17:47] LABS: ALT/SGPT 24 U/L (12-78); BILIRUBIN,TOTAL 0.6 MG/DL (0.2-1.0); BLOOD UREA NITROGEN 16 MG/DL (7-18); CALCIUM LEVEL 9.6 MG/DL (8.8-10.2); CARBON DIOXIDE LEVEL 27 MEQ/L (21-32); CHLORIDE LEVEL 94 MEQ/L (98-107); CREATININE FOR GFR 0.75 MG/DL (0.55-1.30); FREE T4 1.25 NG/DL (0.76-1.46); GLOMERULAR FILTRATION RATE > 60.0 (>32); GLUCOSE, FASTING 73 MG/DL (70-100); POTASSIUM SERUM 4.4 MEQ/L (3.5-5.1); SODIUM LEVEL 126 MEQ/L (136-145); THYROID STIMULATING HORMONE 0.743 uIU/ML (0.358-3.740); TOTAL PROTEIN 7.7 GM/DL (6.4-8.2)
== END ==
LOC: M WUC 11:11
PROVIDERS: ATTEND Physician Assistant
DX: R06.02 Shortness of breath (principal); I10 Essential (primary) hypertension

== ENCOUNTER → 2021-12-16 | Outpatient (CLI) | payer MEDICARE, OTHER ==
[2021-12-16 15:12] LABS: BASO % 0.8 % (0.0-1.0); EOS # 0.1 10^3/uL (0.0-0.5); EOS % 1.3 % (0.0-3.0); HEMATOCRIT 38.4 % (36.0-47.0); HEMOGLOBIN 12.7 g/dl (12.0-15.5); LYMPH # 0.9 10^3/uL (1.5-5.0); LYMPH % 17.6 % (24.0-44.0); MEAN CORPUSCULAR HEMOGLOBIN 30.2 pg (27.0-33.0); MEAN CORPUSCULAR HGB CONC 33.1 g/dl (32.0-36.5); MEAN CORPUSCULAR VOLUME 91.4 fl (80.0-96.0); MONO # 0.5 10^3/uL (0.0-0.8); MONO % 9.3 % (2.0-8.0); NEUTROPHILS # 3.7 10^3/uL (1.5-8.5); NEUTROPHILS % 70.6 % (36.0-66.0); PLATELET COUNT, AUTOMATED 305 10^3/uL (150-450); WHITE BLOOD COUNT 5.3 10^3/uL (4.0-10.0)
[2021-12-16 15:15] LABS: APPEARANCE, URINE MANUAL CLEAR (CLEAR); COLOR, URINE MANUAL YELLOW (YELLOW)
[2021-12-16 15:18] LABS: SPECIFIC GRAVITY,URINE MANUAL 1.015 (1.002-1.035)
[2021-12-16 15:19] LABS: BILIRUBIN, URINE MANUAL NEGATIVE (NEGATIVE); BLOOD URINE MANUAL NEGATIVE (NEGATIVE); GLUCOSE, URINE (UA) MANUAL NEGATIVE (NEGATIVE); KETONE, URINE MANUAL NEGATIVE (NEGATIVE); LEUKOCYTE ESTERASE, URINE MAN TRACE (NEGATIVE); NITRITE, URINE MANUAL NEGATIVE (NEGATIVE); PROTEIN, URINE MANUAL NEGATIVE (NEGATIVE); UROBILINOGEN, URINE MANUAL NORMAL (NORMAL)
[2021-12-16 15:39] LABS: BACTERIA, URINE LARGE AMOUNT; SQUAMOUS EPITHELIAL CELL URINE MOD AMOUNT /hpf (SMALL AMT)
[2021-12-16 15:45] LABS: BLOOD UREA NITROGEN 17 MG/DL (7-18); CALCIUM LEVEL 9.9 MG/DL (8.8-10.2); CARBON DIOXIDE LEVEL 28 MEQ/L (21-32); CHLORIDE LEVEL 95 MEQ/L (98-107); CREATININE FOR GFR 0.83 MG/DL (0.55-1.30); GLOMERULAR FILTRATION RATE > 60.0 (>32); GLUCOSE, FASTING 95 MG/DL (70-100); MAGNESIUM LEVEL 2.2 MG/DL (1.8-2.4); POTASSIUM SERUM 4.9 MEQ/L (3.5-5.1); SODIUM LEVEL 126 MEQ/L (136-145)
== END ==
LOC: M PLALAB 13:00
PROVIDERS: ATTEND Family Medicine
DX: R42 Dizziness and giddiness (principal)

== ENCOUNTER → 2022-01-06 | Outpatient (CLI) | payer MEDICARE, OTHER ==
[2022-01-06 11:13] LABS: APPEARANCE, URINE MANUAL CLEAR (CLEAR); BILIRUBIN, URINE MANUAL NEGATIVE (NEGATIVE); COLOR, URINE MANUAL YELLOW (YELLOW); GLUCOSE, URINE (UA) MANUAL NEGATIVE (NEGATIVE); KETONE, URINE MANUAL NEGATIVE (NEGATIVE); LEUKOCYTE ESTERASE, URINE MAN NEGATIVE (NEGATIVE); NITRITE, URINE MANUAL NEGATIVE (NEGATIVE); PROTEIN, URINE MANUAL NEGATIVE (NEGATIVE); SPECIFIC GRAVITY,URINE MANUAL 1.005 (1.002-1.035); UROBILINOGEN, URINE MANUAL NORMAL (NORMAL)
[2022-01-06 11:14] LABS: BLOOD URINE MANUAL TRACE (NEGATIVE)
[2022-01-06 11:24] LABS: HEMOGLOBIN 12.5 g/dl (12.0-15.5); MEAN CORPUSCULAR HGB CONC 32.9 g/dl (32.0-36.5); MEAN CORPUSCULAR VOLUME 94.3 fl (80.0-96.0); PLATELET COUNT, AUTOMATED 297 10^3/uL (150-450); RED BLOOD COUNT 4.03 10^6/uL (4.00-5.40); WHITE BLOOD COUNT 4.3 10^3/uL (4.0-10.0)
[2022-01-06 11:35] LABS: INR 0.98; PROTHROMBIN TIME 13.4 SECONDS (12.7-14.5)
[2022-01-06 11:36] LABS: PARTIAL THROMBOPLASTIN TIME 32.6 SECONDS (25.9-37.0)
[2022-01-06 11:52] LABS: BACTERIA, URINE MOD AMOUNT; HYALINE CAST, URINE NONE SEEN /lpf (0-1); RBC, URINE 0-1 /hpf (0-3); SQUAMOUS EPITHELIAL CELL URINE SMALL AMOUNT /hpf (SMALL AMT)
== END ==
LOC: M EKG 10:05 → M RAD 10:05
PROVIDERS: ATTEND Podiatrist
DX: M20.42 Other hammer toe(s) (acquired), left foot (principal); M79.675 Pain in left toe(s); Z01.818 Encounter for other preprocedural examination

== ENCOUNTER → 2022-03-21 | Outpatient (CLI) | payer MEDICARE, OTHER ==
[2022-03-21 15:06] LABS: BLOOD UREA NITROGEN 22 MG/DL (9-23); CALCIUM LEVEL 8.9 MG/DL (8.3-10.6); CARBON DIOXIDE LEVEL 24 MMOL/L (20-31); CHLORIDE LEVEL 103 MMOL/L (98-107); CREATININE FOR GFR 0.74 MG/DL (0.55-1.30); FREE T4 1.55 NG/DL (0.89-1.76); GLOMERULAR FILTRATION RATE > 60.0 (>32); GLUCOSE, FASTING 83 MG/DL (74-106); POTASSIUM SERUM 4.8 MMOL/L (3.5-5.1); SODIUM LEVEL 136 MMOL/L (136-145); THYROID STIMULATING HORMONE 0.948 uIU/ML (0.55-4.78)
== END ==
LOC: M PLALAB 10:16
PROVIDERS: ATTEND Family Medicine
DX: E03.9 Hypothyroidism, unspecified (principal); R06.09 Other forms of dyspnea; E87.1 Hypo-osmolality and hyponatremia

== ENCOUNTER → 2022-04-08 | Outpatient (CLI) | payer MEDICARE, OTHER ==
[2022-04-08 14:54] LABS: BLOOD UREA NITROGEN 17 MG/DL (9-23); CALCIUM LEVEL 9.2 MG/DL (8.3-10.6); CARBON DIOXIDE LEVEL 27 MMOL/L (20-31); CHLORIDE LEVEL 99 MMOL/L (98-107); CREATININE FOR GFR 0.72 MG/DL (0.55-1.30); GLOMERULAR FILTRATION RATE > 60.0 (>32); GLUCOSE, FASTING 107 MG/DL (74-106); POTASSIUM SERUM 4.7 MMOL/L (3.5-5.1); SODIUM LEVEL 133 MMOL/L (136-145)
== END ==
LOC: M PLALAB 11:11
PROVIDERS: ATTEND Family Medicine
DX: E87.1 Hypo-osmolality and hyponatremia (principal); R42 Dizziness and giddiness

== ENCOUNTER → 2022-05-18 | Outpatient (CLI) | payer MEDICARE, OTHER | LOC: M CARPUL 10:11 | PROVIDERS: ATTEND Family Medicine | DX: R06.09 Other forms of dyspnea (principal) ==

== ENCOUNTER → 2022-07-19 | Outpatient (CLI) | payer MEDICARE, OTHER | LOC: M SLEEP HO 10:41 | PROVIDERS: ATTEND Internal Medicine Cardiovascular Disease | DX: I27.20 Pulmonary hypertension, unspecified (principal) ==

== ENCOUNTER → 2022-07-20 | Outpatient (CLI) | payer MEDICARE, OTHER ==
[2022-07-20 11:09] LABS: ALBUMIN 3.9 G/DL (3.2-5.2); ALKALINE PHOSPHATASE 75 U/L (46-116); ALT/SGPT 27 U/L (7.0-40); AST/SGOT 23 U/L (<34); BILIRUBIN,TOTAL 0.6 MG/DL (0.3-1.2); BLOOD UREA NITROGEN 25 MG/DL (9-23); CALCIUM LEVEL 9.2 MG/DL (8.3-10.6); CARBON DIOXIDE LEVEL 27 MMOL/L (20-31); CHLORIDE LEVEL 100 MMOL/L (98-107); CREATININE FOR GFR 0.89 MG/DL (0.55-1.30); GLOMERULAR FILTRATION RATE > 60.0 (>32); GLUCOSE, FASTING 98 MG/DL (74-106); POTASSIUM SERUM 4.6 MMOL/L (3.5-5.1); SODIUM LEVEL 132 MMOL/L (136-145); TOTAL PROTEIN 7.4 G/DL (5.7-8.2)
== END ==
LOC: M PLALAB 08:20
PROVIDERS: ATTEND Internal Medicine Cardiovascular Disease
DX: I11.9 Hypertensive heart disease without heart failure (principal); R06.02 Shortness of breath; R60.0 Localized edema; I27.20 Pulmonary hypertension, unspecified

== ENCOUNTER → 2022-08-22 | Outpatient (CLI) | payer MEDICARE, OTHER ==
[2022-08-22 11:09] LABS: BLOOD UREA NITROGEN 31 MG/DL (9-23); CALCIUM LEVEL 9.3 MG/DL (8.3-10.6); CARBON DIOXIDE LEVEL 26 MMOL/L (20-31); CHLORIDE LEVEL 101 MMOL/L (98-107); CREATININE FOR GFR 0.93 MG/DL (0.55-1.30); GLOMERULAR FILTRATION RATE > 60.0 (>32); GLUCOSE, FASTING 85 MG/DL (74-106); PHOSPHORUS LEVEL 3.8 MG/DL (2.4-5.1); POTASSIUM SERUM 4.9 MMOL/L (3.5-5.1); SODIUM LEVEL 133 MMOL/L (136-145)
== END ==
LOC: M PLALAB 08:37
PROVIDERS: ATTEND Internal Medicine Cardiovascular Disease
DX: I11.0 Hypertensive heart disease with heart failure (principal); I50.32 Chronic diastolic (congestive) heart failure

== ENCOUNTER 2022-09-01 10:02 | Observation (INO) | payer MEDICARE, OTHER ==
[~2022-09-01] VITALS: Ht 157.5 cm; Wt 80.6 kg
[2022-09-01] VITALS (8 sets, daily range): BP systolic 117–134; BP diastolic 60–71; TEMP 96.5–98.6; O2SAT 93–98
[~2022-09-01 10:02] MED LIST changes: +AMLO1TAB24 PO; +BIOT10TA2 PO; +CALC600T57 PO; +CHLO125TA PO; +CYAN500T14 PO; +GABA-282 PO; +IRBE300T7 PO; +MIRA3350 PO; +SPIR-10 PO; +SYNT88TA2 PO; +VITA100093 PO; +ceFAZolin SOD 2 GM in IV 1 EA IV ONE
[2022-09-01] MEDS ORDERED: LR 1,000 ML IV SCH ×2 (10:35→13:40)
[2022-09-01] MEDS ORDERED: LIDOCAINE 1% SDV 5ML VIAL SC PRN (10:35)
[2022-09-01] MEDS ORDERED: propofoL 200 MG/20 ML VIAL As Ordered ONE ×2 (10:45→12:53)
[2022-09-01] MEDS ORDERED: LIDOCAINE 2% 100MG/5ML SDV (FOR ANES.) As Ordered ONE (10:46)
[2022-09-01] MEDS ORDERED: fentaNYL 100 MCG/2 ML INJECTION As Ordered ONE (11:22)
[2022-09-01] MEDS ORDERED: ISOVUE-300 61% 100ML VIAL As Ordered ONE (11:22)
[2022-09-01] MEDS ORDERED: LIDOCAINE 1% SDV 30ML VIAL As Ordered ONE (11:22)
[2022-09-01] MEDS ORDERED: ACETAMINOPHEN 1000MG 100ML IV BAG As Ordered ONE (12:23)
[2022-09-01] MEDS ORDERED: ONDANSETRON 4MG 2ML VIAL As Ordered ONE (12:25)
[2022-09-01] MEDS ORDERED: traMADol 50 MG TAB PO PRN (13:25)
[2022-09-01] MEDS ORDERED: oxyCODONE 5MG TAB PO PRN (13:40)
[2022-09-01] MEDS ORDERED: ONDANSETRON 4MG 2ML VIAL IV PRN (13:40)
[2022-09-01] MEDS ORDERED: fentaNYL 100 MCG/2 ML INJECTION IV PRN (13:40)
[2022-09-01] MEDS ORDERED: OLOP5DRO17 OU (16:03)
[2022-09-01] MEDS ORDERED: AMLO1TAB25 PO (16:03)
[2022-09-01] MEDS ORDERED: FLUT05CR TOP (16:03)
[2022-09-01] MEDS ORDERED: KETO2SHA8 TOP (16:03)
[2022-09-01] MEDS ORDERED: CETI-24 PO (16:03)
[2022-09-01] MEDS ORDERED: HOME MED LIST COMPLETE! XX SCH (16:10)
[2022-09-01] MEDS: ceFAZolin SOD 1 GM in D5W MINI-BAG PLUS 50 ML IV SCH (18:46)
[2022-09-01] MEDS: ACETAMINOPHEN TAB 650MG DOSE (2X325MG) PO PRN ×2 (18:46→22:47)
[2022-09-01] MEDS: IRBESARTAN 150MG TAB PO SCH (21:00)
[2022-09-01] MEDS: amLODIPine 5 MG TAB PO SCH (21:16)
[2022-09-02] MEDS: ceFAZolin SOD 1 GM in D5W MINI-BAG PLUS 50 ML IV SCH ×2 (02:11→12:02)
[2022-09-02 04:25] VITALS: BP 147/73; TEMP 97.1; O2SAT 95
[2022-09-02] MEDS ORDERED: LEVOTHYROXINE 88MCG TABLET (0.088 MG) PO SCH (06:00)
[2022-09-02 07:49] VITALS: BP 134/66; TEMP 97; O2SAT 97
[2022-09-02 08:57] VITALS: BP 128/60
[2022-09-02] MEDS: IRBESARTAN 150MG TAB PO SCH (08:59)
[2022-09-02 09:00] VITALS: BP 128/60
[2022-09-02] MEDS ORDERED: OMEPRAZOLE 20MG CAP PO SCH (09:00)
[2022-09-02] MEDS: amLODIPine 5 MG TAB PO SCH (09:00)
[2022-09-02] MEDS: ACETAMINOPHEN TAB 650MG DOSE (2X325MG) PO PRN (09:01)
[2022-09-02 11:42] VITALS: BP 110/59; TEMP 97.8; O2SAT 97
[2022-09-02 16:28] VITALS: BP 137/63; TEMP 97; O2SAT 96
[2022-09-08] MEDS ORDERED: SENN-186 PO (15:58)
[2022-09-08] MEDS ORDERED: COLA100C5 PO (15:58)
[2022-09-08] MEDS ORDERED: LACT20EL PO (15:58)
== END 2022-09-02 17:33 | disposition hospice, home (50) ==
LOC: M SDC 10:02 → M PCU 14:25
PROVIDERS: ADMIT Internal Medicine Cardiovascular Disease; ATTEND Internal Medicine Cardiovascular Disease
DX: I49.5 Sick sinus syndrome (principal); R00.1 Bradycardia, unspecified; K21.9 Gastro-esophageal reflux disease without esophagitis; E03.9 Hypothyroidism, unspecified; G47.33 Obstructive sleep apnea (adult) (pediatric); R06.02 Shortness of breath; R94.31 Abnormal electrocardiogram [ECG] [EKG]; I27.81 Cor pulmonale (chronic); I11.9 Hypertensive heart disease without heart failure; I35.1 Nonrheumatic aortic (valve) insufficiency
CPT/HCPCS: 33208; 71045; 71046; 76000; 87635; 93005; 96365; 96366; C1785; C1898; G0378; J0131; J0690; J1100; J2405; J3010; Q9967

== ENCOUNTER → 2022-09-14 | Outpatient (CLI) | payer MEDICARE, OTHER ==
[~2022-09-14] MED LIST changes: +AMLO1TAB25 PO; +CETI-24 PO; +COLA100C5 PO; +FLUT05CR TOP; +KETO2SHA8 TOP; +LACT20EL PO; +OLOP5DRO17 OU; +SENN-186 PO; -ceFAZolin SOD 2 GM in IV 1 EA IV ONE
[2022-09-14 14:11] LABS: BLOOD UREA NITROGEN 22 MG/DL (9-23); CALCIUM LEVEL 8.4 MG/DL (8.3-10.6); CARBON DIOXIDE LEVEL 26 MMOL/L (20-31); CHLORIDE LEVEL 100 MMOL/L (98-107); CREATININE FOR GFR 0.91 MG/DL (0.55-1.30); GLOMERULAR FILTRATION RATE > 60.0 (>32); GLUCOSE, FASTING 97 MG/DL (74-106); MAGNESIUM LEVEL 1.5 MG/DL (1.8-2.4); POTASSIUM SERUM 4.4 MMOL/L (3.5-5.1); SODIUM LEVEL 131 MMOL/L (136-145)
== END ==
LOC: M PLALAB 11:52
PROVIDERS: ATTEND Family Medicine
DX: E87.1 Hypo-osmolality and hyponatremia (principal)

== ENCOUNTER → 2022-10-06 | Outpatient (CLI) | payer MEDICARE, OTHER ==
[2022-10-06 10:55] LABS: BLOOD UREA NITROGEN 22 MG/DL (9-23); CALCIUM LEVEL 8.8 MG/DL (8.3-10.6); CARBON DIOXIDE LEVEL 27 MMOL/L (20-31); CHLORIDE LEVEL 101 MMOL/L (98-107); CREATININE FOR GFR 0.84 MG/DL (0.55-1.30); GLOMERULAR FILTRATION RATE > 60.0 (>32); GLUCOSE, FASTING 94 MG/DL (74-106); MAGNESIUM LEVEL 1.9 MG/DL (1.8-2.4); POTASSIUM SERUM 4.8 MMOL/L (3.5-5.1); SODIUM LEVEL 134 MMOL/L (136-145)
== END ==
LOC: M PLALAB 08:18
PROVIDERS: ATTEND Family Medicine
DX: E87.1 Hypo-osmolality and hyponatremia (principal); E83.42 Hypomagnesemia

== ENCOUNTER → 2022-12-01 | Outpatient (CLI) | payer MEDICARE, OTHER ==
[2022-12-01 12:29] LABS: BLOOD UREA NITROGEN 20 MG/DL (9-23); CALCIUM LEVEL 9.4 MG/DL (8.3-10.6); CARBON DIOXIDE LEVEL 25 MMOL/L (20-31); CHLORIDE LEVEL 98 MMOL/L (98-107); CHOLESTEROL LEVEL 167 MG/DL (<200); CHOLESTEROL RISK RATIO 3.33 (<5); CREATININE FOR GFR 0.81 MG/DL (0.55-1.30); GLOMERULAR FILTRATION RATE > 60.0 (>32); GLUCOSE, FASTING 92 MG/DL (74-106); HDL CHOLESTEROL 50.1 MG/DL (>40); LDL CHOLESTEROL 101.7 MG/DL (<100); MAGNESIUM LEVEL 1.9 MG/DL (1.8-2.4); NON-HDL-C 116.9 MG/DL; POTASSIUM SERUM 4.8 MMOL/L (3.5-5.1); SODIUM LEVEL 132 MMOL/L (136-145); TRIGLYCERIDES LEVEL 76 MG/DL (<150)
== END ==
LOC: M PLALAB 08:35
PROVIDERS: ATTEND Family Medicine
DX: E78.00 Pure hypercholesterolemia, unspecified (principal); E83.42 Hypomagnesemia; E87.1 Hypo-osmolality and hyponatremia

== ENCOUNTER → 2023-02-10 | Outpatient (CLI) | payer MEDICARE, OTHER ==
[2023-02-10 14:15] LABS: BASO # 0.1 10^3/uL (0.0-0.2); BASO % 1.6 % (0.0-1.0); EOS # 0.2 10^3/uL (0.0-0.5); EOS % 4.1 % (0.0-3.0); HEMATOCRIT 34.7 % (36.0-47.0); HEMOGLOBIN 11.5 g/dl (12.0-15.5); LYMPH # 1.1 10^3/uL (1.5-5.0); LYMPH % 21.8 % (24.0-44.0); MEAN CORPUSCULAR HEMOGLOBIN 31.1 pg (27.0-33.0); MEAN CORPUSCULAR HGB CONC 33.1 g/dl (32.0-36.5); MEAN CORPUSCULAR VOLUME 93.8 fl (80.0-96.0); MONO # 0.6 10^3/uL (0.0-0.8); MONO % 12.1 % (2.0-8.0); NEUTROPHILS # 2.9 10^3/uL (1.5-8.5); PLATELET COUNT, AUTOMATED 368 10^3/uL (150-450); WHITE BLOOD COUNT 4.9 10^3/uL (4.0-10.0)
[2023-02-10 14:29] LABS: ALBUMIN 3.7 G/DL (3.2-5.2); ALKALINE PHOSPHATASE 90 U/L (46-116); ALT/SGPT 25 U/L (7.0-40); AST/SGOT 17 U/L (<34); BILIRUBIN,TOTAL 0.7 MG/DL (0.3-1.2); BLOOD UREA NITROGEN 24 MG/DL (9-23); CARBON DIOXIDE LEVEL 28 MMOL/L (20-31); CHLORIDE LEVEL 99 MMOL/L (98-107); CREATININE FOR GFR 0.87 MG/DL (0.55-1.30); GLOMERULAR FILTRATION RATE > 60.0 (>32); GLUCOSE, FASTING 86 MG/DL (74-106); POTASSIUM SERUM 5.4 MMOL/L (3.5-5.1); SODIUM LEVEL 131 MMOL/L (136-145); TOTAL PROTEIN 7.4 G/DL (5.7-8.2)
== END ==
LOC: M PLALAB 09:05
PROVIDERS: ATTEND Internal Medicine Cardiovascular Disease
DX: I27.81 Cor pulmonale (chronic) (principal); I11.9 Hypertensive heart disease without heart failure; R06.02 Shortness of breath; I49.5 Sick sinus syndrome; R60.0 Localized edema; I08.0 Rheumatic disorders of both mitral and aortic valves; R94.31 Abnormal electrocardiogram [ECG] [EKG]

== ENCOUNTER → 2023-03-20 | Outpatient (CLI) | payer MEDICARE, OTHER ==
[2023-03-20 15:07] LABS: ALBUMIN 3.7 G/DL (3.2-5.2); BLOOD UREA NITROGEN 28 MG/DL (9-23); CALCIUM LEVEL 9.3 MG/DL (8.3-10.6); CARBON DIOXIDE LEVEL 25 MMOL/L (20-31); CHLORIDE LEVEL 101 MMOL/L (98-107); GLOMERULAR FILTRATION RATE > 60.0 (>32); GLUCOSE, FASTING 89 MG/DL (74-106); PHOSPHORUS LEVEL 3.5 MG/DL (2.4-5.1); POTASSIUM SERUM 4.8 MMOL/L (3.5-5.1); SODIUM LEVEL 133 MMOL/L (136-145)
== END ==
LOC: M PLALAB 09:43
PROVIDERS: ATTEND Internal Medicine Cardiovascular Disease
DX: E78.5 Hyperlipidemia, unspecified (principal); I11.9 Hypertensive heart disease without heart failure

== ENCOUNTER → 2023-06-08 | Outpatient (CLI) | payer MEDICARE, OTHER ==
[~2023-06-08] MED LIST changes: +IRBE300T25 PO; -IRBE300T7 PO; -SENN1TAB41 PO; +SENN1TAB85 PO
[2023-06-08 11:09] LABS: BASO # 0.1 10^3/uL (0.0-0.2); BASO % 0.9 % (0.0-1.0); EOS # 0.2 10^3/uL (0.0-0.5); HEMATOCRIT 37.3 % (36.0-47.0); HEMOGLOBIN 12.6 g/dl (12.0-15.5); LYMPH # 1.2 10^3/uL (1.5-5.0); LYMPH % 20.7 % (24.0-44.0); MEAN CORPUSCULAR HEMOGLOBIN 31.9 pg (27.0-33.0); MEAN CORPUSCULAR HGB CONC 33.8 g/dl (32.0-36.5); MEAN CORPUSCULAR VOLUME 94.4 fl (80.0-96.0); MONO # 0.6 10^3/uL (0.0-0.8); NEUTROPHILS # 3.6 10^3/uL (1.5-8.5); NEUTROPHILS % 64.2 % (36.0-66.0); PLATELET COUNT, AUTOMATED 279 10^3/uL (150-450); RED BLOOD COUNT 3.95 10^6/uL (4.00-5.40); WHITE BLOOD COUNT 5.6 10^3/uL (4.0-10.0)
[2023-06-08 11:41] LABS: BLOOD UREA NITROGEN 24 MG/DL (9-23); CALCIUM LEVEL 8.8 MG/DL (8.3-10.6); CARBON DIOXIDE LEVEL 28 MMOL/L (20-31); CHLORIDE LEVEL 97 MMOL/L (98-107); GLOMERULAR FILTRATION RATE > 60.0 (>32); GLUCOSE, FASTING 89 MG/DL (74-106); POTASSIUM SERUM 5.2 MMOL/L (3.5-5.1); SODIUM LEVEL 127 MMOL/L (136-145)
[2023-06-08 11:43] LABS: FREE T4 1.27 NG/DL (0.89-1.76)
== END ==
LOC: M PLALAB 08:23
PROVIDERS: ATTEND Family Medicine
DX: E83.42 Hypomagnesemia (principal); E03.9 Hypothyroidism, unspecified; R06.09 Other forms of dyspnea; E87.1 Hypo-osmolality and hyponatremia

== ENCOUNTER → 2023-06-14 | Outpatient (CLI) | payer MEDICARE, OTHER ==
[2023-06-14 11:24] LABS: CORTISOL AM 27.9 UG/DL (4.3-22.4); CORTISOL BASELINE 27.9 UG/DL (4.3-22.4)
[2023-06-14 11:26] LABS: CALCIUM LEVEL 8.5 MG/DL (8.3-10.6); CREATININE FOR GFR 1.01 MG/DL (0.55-1.30); GLOMERULAR FILTRATION RATE 55.5 (>32); POTASSIUM SERUM 5.2 MMOL/L (3.5-5.1)
== END ==
LOC: M PLALAB 08:33
PROVIDERS: ATTEND Family Medicine
DX: E22.2 Syndrome of inappropriate secretion of antidiuretic hormone (principal)

== ENCOUNTER → 2023-06-15 | Outpatient (REF) | payer MEDICARE, OTHER | LOC: M LAB REF 17:08 | PROVIDERS: ATTEND Family Medicine | DX: E22.2 Syndrome of inappropriate secretion of antidiuretic hormone (principal) ==

== ENCOUNTER → 2023-06-16 | Outpatient (CLI) | payer MEDICARE, OTHER | LOC: M SLEEP 20:00 | PROVIDERS: ATTEND Internal Medicine Pulmonary Disease | DX: G47.33 Obstructive sleep apnea (adult) (pediatric) (principal) ==

== ENCOUNTER → 2023-07-17 | Outpatient (CLI) | payer MEDICARE, OTHER ==
[2023-07-17 11:45] LABS: BASO # 0.1 10^3/uL (0.0-0.2); EOS # 0.2 10^3/uL (0.0-0.5); EOS % 4.3 % (0.0-3.0); HEMATOCRIT 38.8 % (36.0-47.0); HEMOGLOBIN 12.6 g/dl (12.0-15.5); LYMPH # 1.2 10^3/uL (1.5-5.0); LYMPH % 24.9 % (24.0-44.0); MEAN CORPUSCULAR HEMOGLOBIN 31.5 pg (27.0-33.0); MEAN CORPUSCULAR HGB CONC 32.5 g/dl (32.0-36.5); MONO # 0.5 10^3/uL (0.0-0.8); MONO % 10.5 % (2.0-8.0); NEUTROPHILS # 2.9 10^3/uL (1.5-8.5); NEUTROPHILS % 59.1 % (36.0-66.0); PLATELET COUNT, AUTOMATED 248 10^3/uL (150-450); WHITE BLOOD COUNT 4.9 10^3/uL (4.0-10.0)
[2023-07-17 12:01] LABS: ALBUMIN 3.6 G/DL (3.2-5.2); ALKALINE PHOSPHATASE 76 U/L (46-116); ALT/SGPT 18 U/L (7.0-40); AST/SGOT 14 U/L (<34); BILIRUBIN,TOTAL 0.6 MG/DL (0.3-1.2); BLOOD UREA NITROGEN 25 MG/DL (9-23); CARBON DIOXIDE LEVEL 27 MMOL/L (20-31); CHLORIDE LEVEL 106 MMOL/L (98-107); CREATININE FOR GFR 0.81 MG/DL (0.55-1.30); GLOMERULAR FILTRATION RATE > 60.0 (>32); GLUCOSE, FASTING 90 MG/DL (74-106); SODIUM LEVEL 139 MMOL/L (136-145); TOTAL PROTEIN 7.2 G/DL (5.7-8.2)
== END ==
LOC: M PLALAB 08:55
PROVIDERS: ATTEND Internal Medicine Cardiovascular Disease
DX: R06.02 Shortness of breath (principal)

== ENCOUNTER → 2024-02-15 | Outpatient (REF) | payer MEDICARE, OTHER ==
[~2024-02-15] MED LIST changes: +GABA-1172 PO; -GABA-282 PO
[2024-02-15 12:54] LABS: BASO # 0.1 10^3/uL (0.0-0.2); BASO % 1.1 % (0.0-1.0); EOS # 0.2 10^3/uL (0.0-0.5); EOS % 4.3 % (0.0-3.0); HEMATOCRIT 37.9 % (36.0-47.0); HEMOGLOBIN 12.6 g/dl (12.0-15.5); LYMPH # 1.2 10^3/uL (1.5-5.0); LYMPH % 27.9 % (24.0-44.0); MEAN CORPUSCULAR HEMOGLOBIN 32.6 pg (27.0-33.0); MEAN CORPUSCULAR HGB CONC 33.2 g/dl (32.0-36.5); MEAN CORPUSCULAR VOLUME 97.9 fl (80.0-96.0); MONO # 0.4 10^3/uL (0.0-0.8); MONO % 9.8 % (2.0-8.0); NEUTROPHILS # 2.5 10^3/uL (1.5-8.5); NEUTROPHILS % 56.7 % (36.0-66.0); PLATELET COUNT, AUTOMATED 268 10^3/uL (150-450); RED BLOOD COUNT 3.87 10^6/uL (4.00-5.40); WHITE BLOOD COUNT 4.4 10^3/uL (4.0-10.0)
[2024-02-15 12:57] LABS: ALBUMIN 3.9 G/DL (3.2-5.2); ALKALINE PHOSPHATASE 80 U/L (35-104); ALT/SGPT 21 U/L (7.0-40); AST/SGOT 14 U/L (<34); BILIRUBIN,TOTAL 0.6 MG/DL (0.3-1.2); BLOOD UREA NITROGEN 16 MG/DL (9-23); CALCIUM LEVEL 9.3 MG/DL (8.3-10.6); CARBON DIOXIDE LEVEL 28 MMOL/L (20-31); CHLORIDE LEVEL 103 MMOL/L (98-107); CREATININE FOR GFR 0.79 MG/DL (0.55-1.30); GLOMERULAR FILTRATION RATE > 60.0 (>32); GLUCOSE, FASTING 77 MG/DL (74-106); POTASSIUM SERUM 4.5 MMOL/L (3.5-5.1); SODIUM LEVEL 137 MMOL/L (136-145); TOTAL PROTEIN 7.2 G/DL (5.7-8.2)
== END ==
LOC: M SFHCPLAZ 09:34
PROVIDERS: ATTEND Family Medicine
DX: Z01.810 Encounter for preprocedural cardiovascular examination (principal)

== ENCOUNTER 2024-03-04 12:29 | Day surgery (SDC) | payer MEDICARE, OTHER ==
[~2024-03-04] VITALS: Ht 157.5 cm; Wt 73.9 kg
[~2024-03-04 12:29] MED LIST changes: +MAGN400C2 PO; +SOOT1DRO OU
[2024-03-04] MEDS ORDERED: NS 1,000 ML IV SCH (12:35)
[2024-03-04 13:19] LABS: HEMATOCRIT 39.7 % (36.0-47.0); HEMOGLOBIN 13.2 g/dl (12.0-15.5); MEAN CORPUSCULAR HEMOGLOBIN 32.2 pg (27.0-33.0); MEAN CORPUSCULAR HGB CONC 33.2 g/dl (32.0-36.5); MEAN CORPUSCULAR VOLUME 96.8 fl (80.0-96.0); PLATELET COUNT, AUTOMATED 266 10^3/uL (150-450); WHITE BLOOD COUNT 5.7 10^3/uL (4.0-10.0)
[2024-03-04] MEDS ORDERED: propofoL 200 MG/20 ML VIAL As Ordered ONE (14:35)
[2024-03-04] MEDS ORDERED: ONDANSETRON 4MG 2ML VIAL As Ordered ONE (14:35)
[2024-03-04] MEDS ORDERED: LIDOCAINE 2% 100MG/5ML SDV (FOR ANES.) As Ordered ONE (14:35)
[2024-03-04] MEDS ORDERED: fentaNYL 100 MCG/2 ML INJECTION As Ordered ONE (14:43)
[2024-03-04] MEDS: ceFAZolin SOD 2 GM in IV 1 EA IV ONE (15:54)
[2024-03-04] MEDS: VASOPRESSIN INJ 20UNITS/ML 1ML VIAL As Ordered ONE (16:14)
[2024-03-04] MEDS ORDERED: ACETAMINOPHEN 1000MG/100ML IV BAG As Ordered ONE (16:17)
[2024-03-04 18:43] VITALS: BP 142/78; TEMP 97.3; O2SAT 97
== END 2024-03-04 20:03 | disposition home or self-care (01) ==
LOC: M SDC 12:29
PROVIDERS: ATTEND Specialist
DX: N81.6 Rectocele (principal); I10 Essential (primary) hypertension; K21.9 Gastro-esophageal reflux disease without esophagitis; E78.5 Hyperlipidemia, unspecified; E03.9 Hypothyroidism, unspecified; J31.0 Chronic rhinitis; G43.909 Migraine, unspecified, not intractable, without status migrainosus; Z88.0 Allergy status to penicillin; Z91.018 Allergy to other foods
CPT/HCPCS: 36415; 57250; 85027; 86850; 86900; 86901; 88302; J0131; J0665; J0690; J1100; J2405; J2598; J3010

== ENCOUNTER → 2025-01-15 | Outpatient (CLI) | payer MEDICARE, OTHER ==
[~2025-01-15] MED LIST changes: +KETO120S5 TOP; -KETO2SHA8 TOP
== END ==
LOC: M PLAIMG 13:28
PROVIDERS: ATTEND Registered Nurse
DX: I08.0 Rheumatic disorders of both mitral and aortic valves (principal)